=== PATIENT | female | born 1975 | race Caucasian/White ===

== ENCOUNTER → 2016-09-08 | Outpatient (CLI) | payer OTHER ==
[~2016-09-08] MED LIST: PHEN95TA14 PO; PRENTAB26 PO
[2016-09-08 17:23] LABS: GTGD 50 Grams
[2016-09-14 14:50] LABS: AFP MULTIPLE OF MEDIAN 1.13; AFPTS GESTATIONAL AGE 18.4 WEEKS; AFPTS INSULIN DEP DIABETIC? NO; AFPTS MATERNAL WT 131 LBS; ALPHA-FETOPROTEIN RACE CAUCASIAN=W; HISTORY OF NTD NO; REPEAT SAMPLE? NO
== END | disposition home or self-care (01) ==
LOC: C.LAB1850 14:13
PROVIDERS: ATTEND Obstetrics & Gynecology
DX: O09.529 Supervision of elderly multigravida, unspecified trimester (principal)

== ENCOUNTER → 2016-11-24 | Outpatient (CLI) | payer OTHER ==
[2016-11-24 17:21] LABS: HEMATOCRIT 36.1 % (37-47)
[2016-11-24 17:42] LABS: GTGD 50 Grams
[2016-11-24 17:43] LABS: URINE APPEARANCE CLEAR (CLEAR); URINE BILIRUBIN NEG (NEG); URINE COLOR YELLOW; URINE EPITHELIAL CELL AUTO >30 /lpf (0-5); URINE NITRITE NEG (NEG); URINE SPECIFIC GRAVITY 1.011 (1.000-1.030); UROBILINOGEN NEG (NEG)
[2016-11-24 17:44] LABS: MANUAL MICROSCOPIC REQUIRED? NO; REVIEW REQ? NO
== END | disposition home or self-care (01) ==
LOC: C.LAB1850 16:05
PROVIDERS: ATTEND Obstetrics & Gynecology
DX: O09.523 Supervision of elderly multigravida, third trimester (principal)

== ENCOUNTER 2017-01-29 09:14 | Inpatient (IN) | payer OTHER ==
[~2017-01-29] VITALS: Ht 167.6 cm; Wt 71.0 kg
[~2017-01-29 09:14] MED LIST changes: -PRENTAB26 PO
[2017-01-29] MEDS ORDERED: LACTATED RINGER'S 1000ML 1,000 ML IV PRN (09:15)
[2017-01-29] MEDS ORDERED: LACTATED RINGER'S 1000ML 1,000 ML IV SCH (09:15)
[2017-01-29] MEDS ORDERED: FENTANYL CITRATE INJ 50 MCG/1 ML 2 ML VIAL ONE (09:37)
[2017-01-29] MEDS ORDERED: FENTANYL 2MCG/ML ROPIV 1.25MG/ML 100ML BAG EPI ONE (09:37)
[2017-01-29] MEDS ORDERED: EpHEDrine SULFATE INJ 50 MG/ML AMP ONE (09:37)
[2017-01-29] MEDS ORDERED: BUPIVACAINE 0.25% 30 ML VIAL ONE (09:37)
[2017-01-29 09:40] LABS: MEAN CELL VOLUME 98.7 fL (80-100); MEAN CORPUSCULAR HEMOGLOBIN 33.6 pg (25-34); MEAN CORPUSCULAR HGB CONC 34.1 g/dl (32-36); MEAN PLATELET VOLUME 9.5 fL (7.4-10.4); PLATELET COUNT 242 K/uL (130-400); RED BLOOD COUNT 3.75 M/uL (4.2-5.4); WHITE BLOOD COUNT 19.44 K/uL (4.8-10.8)
[2017-01-29] MEDS ORDERED: NALOXONE HCL INJ 1 MG in SODIUM CHLORIDE 0.9% 1000ML 1,000 ML IV PRN (09:48)
[2017-01-29] MEDS ORDERED: LACTATED RINGER'S 1000ML 500 ML IV PRN (09:48)
[2017-01-29] MEDS ORDERED: NALBUPHINE HCL INJ 10 MG/ML AMP IV PRN (10:00)
[2017-01-29] MEDS ORDERED: NALOXONE HCL INJ 0.4 MG/1 ML VIAL/CARP IV PRN (10:00)
[2017-01-29] MEDS ORDERED: ONDANSETRON INJ 2 MG/ML 2 ML VIAL IV PRN (10:00)
[2017-01-29] MEDS ORDERED: DiphenhydrAMINE HCL 50 MG/ML VIAL IV PRN (10:00)
[2017-01-29] MEDS ORDERED: EpHEDrine SULFATE INJ 50 MG/ML AMP IV PRN (10:00)
[2017-01-29] MEDS ORDERED: FENTANYL 2MCG/ML ROPIV 1.25MG/ML 100ML BAG EPI PRN (10:00)
[2017-01-29 11:14] VITALS: Ht 167.6 cm; Wt 71.0 kg
[2017-01-29] MEDS ORDERED: PRENTAB26 PO (11:41)
[2017-01-29] MEDS ORDERED: OXYTOCIN 30 UNITS/500ML NSS IV ONE (12:02)
[2017-01-29] MEDS ORDERED: SUPERCREAM 0.870 % 15GM JAR EXT PRN (12:30)
[2017-01-29] MEDS ORDERED: LANOLIN OINT EXT PRN ×2 (12:30)
[2017-01-29] MEDS ORDERED: OXYTOCIN 30 UNITS/500ML NSS IV PRN (12:30)
[2017-01-29] MEDS ORDERED: OXYTOCIN INJ 20 UNITS in LACTATED RINGER'S 1000ML 1,000 ML IV SCH (12:30)
[2017-01-29] MEDS ORDERED: HYDROCORTISONE ACETATE 25 MG SUPP PR PRN (12:30)
[2017-01-29] MEDS ORDERED: BENZOCAINE 20% AER SPR 82.5 GM CAN EXT PRN (12:30)
[2017-01-29] MEDS ORDERED: DIPHTHERIA/TETANUS/PERTUSSIS 0.5 ML SYR/VIAL IM. ONE (12:30)
--- NOTE | 2017-01-29 13:26 | DELIVERY SUMMARY ---
DATE OF OPERATION: 01/29/2017 DELIVERY SUMMARY: The patient dilated to complete and pushed to deliver a viable male , Apgars 8 and 9 via over intact perineum. Nose and mouth bulb suctioned at the perineum. Shoulders and body delivered with ease. Infant vigorous and crying at . Peds in attendance. Cord clamped after approximately 38 seconds of life and infant to maternal abdomen. Cord then doubly clamped and cut. Placenta was delivered spontaneously intact, 3-vessel cord. Hemostasis achieved with dilute Pitocin and uterine massage. Cervix and sulci intact. Estimated blood loss 300 mL. Mother and baby stable in recovery. Bladder drained just prior to delivery for 600 mL. I attest to the content of the Intraoperative Record and any orders documented therein. Any exceptions are noted below. MTDD
[2017-01-29 15:30] VITALS: BP 117/72; PULSE 88; TEMP 36.9
[2017-01-29] MEDS: IBUPROFEN 600 MG TAB PO PRN ×2 (17:19→23:41)
[2017-01-29] MEDS: ACETAMINOPHEN 325 MG TAB PO PRN (19:20)
[2017-01-29] MEDS: DOCUSATE SODIUM 100 MG CAP PO SCH (19:21)
[2017-01-29 19:25] VITALS: BP 121/77; PULSE 70; TEMP 37.2; O2SAT 96
[2017-01-29] MEDS ORDERED: CALCIUM CARBONATE 500 MG CHEWABLE PO PRN (21:15)
[2017-01-29 23:45] VITALS: BP 101/65; PULSE 70; TEMP 37; O2SAT 96
[2017-01-30] MEDS: ACETAMINOPHEN 325 MG TAB PO PRN (02:04)
[2017-01-30 03:45] VITALS: BP 118/74; PULSE 74; TEMP 36.8; O2SAT 96
[2017-01-30] MEDS: IBUPROFEN 600 MG TAB PO PRN ×5 (04:10→21:34)
[2017-01-30 07:37] VITALS: BP 91/61; PULSE 84; TEMP 36.7; O2SAT 97
[2017-01-30 07:41] VITALS: BP 111/68; PULSE 75; TEMP 37.3; O2SAT 97
--- NOTE | 2017-01-30 07:58 | Progress Note ---
Subjective Jan 30, 2017. Subjective conversation w/ patient, physical exam Ambulation: ambulating normally Voiding: no voiding problems Diet Tolerance: Regular Diet Lochia: Small Feeding Type: Bottle Feeding Pain: no pain issues Comment: pt is sure ABO is O pos and I checked [employer] and that is the case. documented wrong in ob record. Objective Vital Signs Date Time Temp Pulse Resp B/P (MAP) Pulse Ox O2 Delivery O2 Flow Rate FiO2 01/30/17 03:45 36.8 74 16 118/74 (89) 96 Room Air 01/29/17 23:45 37.0 70 18 101/65 (77) 96 Room Air 01/29/17 23:45 96 Room Air 01/29/17 19:25 37.2 70 18 121/77 (92) 96 Room Air 01/29/17 15:30 Room Air 01/29/17 15:30 36.9 88 20 117/72 (87) Room Air Physical Exam General Appearance: WELL-APPEARING, WD/WN, NO APPARENT DISTRESS Respiratory/Chest: lungs clear Cardiovascular: regular rate, rhythm Abdomen: non tender, soft Fundus: Firm, Relation to Umbilicus (2 down) Extremities: non-tender Laboratory Results Last 24 Hours Test 01/29/17 09:31 White Blood Count 19.44 K/uL Red Blood Count 3.75 M/uL Hemoglobin 12.6 g/dL Hematocrit 37.0 % Mean Corpuscular Volume 98.7 fL Mean Corpuscular Hemoglobin 33.6 pg Mean Corpuscular Hemoglobin Concent 34.1 g/dl RDW Standard Deviation 50.7 fL RDW Coefficient of Variation 14.1 % Platelet Count 242 K/uL Mean Platelet Volume 9.5 fL Assessment and Plan Problem List Medical Problems: (1) Anxiety and depression Status: Chronic (2) Foot pain Status: Acute (3) Right foot strain Status: Acute (4) Tobacco Use Disorder Status: Chronic (5) Urinary tract infection Status: Acute Post- Day#: 1 Continue Routine Care: stable. routine care. rh pos. baby doing well. she is considering pumping-- explained that can't wait.
[2017-01-30] MEDS: DOCUSATE SODIUM 100 MG CAP PO SCH ×2 (08:35→20:00)
[2017-01-30 11:45] VITALS: BP 105/60; PULSE 80; TEMP 37.3; O2SAT 95
[2017-01-30 15:40] VITALS: BP 133/82; PULSE 73; TEMP 37
[2017-01-30 23:45] VITALS: BP 107/69; PULSE 73; TEMP 37.2; O2SAT 95
--- NOTE | 2017-01-31 07:42 | Progress Note ---
Subjective Jan 31, 2017. Subjective conversation w/ patient, physical exam Ambulation: ambulating normally Voiding: no voiding problems Feeding Type: Bottle Feeding Objective Vital Signs Date Time Temp Pulse Resp B/P (MAP) Pulse Ox O2 Delivery O2 Flow Rate FiO2 01/30/17 23:45 95 Room Air 01/30/17 23:45 37.2 73 16 107/69 (82) 95 Room Air 01/30/17 16:10 Room Air 01/30/17 15:40 37.0 73 18 133/82 (99) Room Air 01/30/17 11:45 37.3 80 20 105/60 (75) 95 Room Air 01/30/17 08:00 Room Air 01/30/17 07:41 37.3 75 16 111/68 (82) 97 Room Air Physical Exam General Appearance: WELL-APPEARING, NO APPARENT DISTRESS Fundus: Firm, Non-Tender Extremities: no calf tenderness Assessment and Plan Problem List Medical Problems: (1) Anxiety and depression Status: Chronic (2) Foot pain Status: Acute (3) Right foot strain Status: Acute (4) Tobacco Use Disorder Status: Chronic (5) Urinary tract infection Status: Acute Post- Day#: 2 Continue Routine Care: - patient doing well - baby's cardiac status is stable - baby under the bili lights, unknown if the baby will be discharged - d/c instructions given to Mom - f/u in 6 weeks
--- NOTE | 2017-01-31 07:43 | Discharge Instructions ---
Discharge Instructions Date of Service Jan 31, 2017. Admission Reason for Admission: Check Labor Discharge Discharge Diagnosis / Problem: same Discharge Goals Goal(s): Routine recovery after delivery Medications Continue Dispensed Medications: supercream, dermaplast Activity Recommendations Activity Limitations: as noted below . Instructions / Follow-Up Instructions / Follow-Up ACTIVITY RECOMMENDATIONS: * Gradual return to full activity over the next 2-3 weeks. * No lifting - nothing heavier than baby over the next 2-3 weeks. * Do not engage in vigorous exercise, sexual activity or sports until cleared by your physician. * Do not drive or operate any motorized equipment until cleared by your physician. * You may shower/bathe daily. MEDICATIONS: For discomfort or pain, you may use Acetaminophen (Tylenol), Ibuprofen (Advil), or Naproxen (Aleve) following the package directions. For constipation you may use Colace following the package directions. BREAST CARE: If you are not breast feeding: * Wear a supportive bra 24 hours a day for one to two weeks. * Avoid stimulating your breasts and nipples as much as possible during the first few weeks after delivery. * When taking a shower, have the warm water hit your back, not breasts. * When your breasts feel full, apply ice packs. Usually three to four times a day helps ease the discomfort. * Take a mild pain medication (Tylenol / Motrin) when you are uncomfortable. If breast feeding: * Use breast milk to lubricate nipples. Lansinoh cream may be used for sore nipples. You do not need to remove cream prior to breast feeding. If using a different brand of cream, check the label for directions regarding removal of cream prior to nursing. * Wear a supportive bra. * If having problems with breasts or breast feeding, call a trousseau consultant or your health care provider. EPISIOTOMY CARE: After delivery, if you have an episiotomy (stitches), the following steps will ease discomfort and aid healing. * For the first 24 hours after delivery, place ice packs next to your episiotomy to help reduce swelling. * After the first 24 hour-period, sitz baths, either portable or in the tub, are suggested. A shower with a shower arm sprayed over the episiotomy may be comforting. * Jodi care should be done after each voiding and bowel movement. Squirt warm water from a plastic bottle over the perineum (region of the body between the anus and urinary opening) and pat dry. * Use Dermoplast to ease discomfort. Shake container. [place] directly over the episiotomy. Place a Tucks on a clean sanitary pad next to your episiotomy. SPECIAL CARE INSTRUCTIONS: When you are discharged from the hospital, it is important for you to follow the instructions listed below: * During the first week at home, you should be able to care for yourself and your baby. In addition, the usual light household activities are encouraged. * Limit your activities to the way you feel. Do not try to clean the house or move furniture. Be sensible. * If you actively engage in sports and have done so up until the time of your delivery, you may resume these activities as soon as you feel able. This may take up to one month or even longer. Use good judgment. * Continue to take your vitamins for at least six weeks after the of your baby. * Your diet need not be limited unless you were on a special diet before your delivery. Breast-feeding mothers need around 2500 calories per day and at least 64-80 ounces of fluid per day (8 to 10 glasses). * You should eat foods from the four major food groups. Crash diets or fad diets are to be avoided. Eating lean meats, fresh fruits and vegetables, low-fat dairy products, high fiber foods and a regular exercise program, will help you get back to your pre- weight without putting your health at risk. * Constipation is sometimes a problem after delivery. Take a mild laxative as needed. If breast feeding, Milk of Magnesia is acceptable to use. You may use a suppository or Fleets enema if no episiotomy. * A daily shower or tub bath is suggested. Be sure to thoroughly and gently dry the perineum. * A bloody vaginal discharge will usually continue until around four weeks post . A small amount of bleeding may continue for as long as six weeks. Vaginal discharge changes from the bright red bleeding after delivery to pink then brownish and finally yellowish-pink before becoming white and disappearing. * Bleeding may increase with activity. Your first period may come in 4-8 weeks. If you are breast feeding, your period may be delayed even longer. * Mar-Mac (sex) can begin whenever both you and your partner feel comfortable and do not have any form of genital infection. It is recommended that you wait at least six weeks for internal and external healing to occur. If you have questions, please talk to your health care practitioner. A condom should be used to prevent infection and . * Foreplay, gentle intercourse and lubrication is very important the first several times to prevent pain. A water-based lubricant such as K-Y jelly or Astroglide may be used. * If you have RH negative blood and your baby is RH positive, you will receive RHOGAM by injection prior to discharge. The nurse will give you a card to keep with you that has the date and place that you received RHOGAM after delivery. * During your care, you had a Rubella screen done to check for the presence of rubella antibodies in your blood. If your test was negative, you will receive a Rubella vaccine prior to discharge. This vaccine may cause a fever, soreness at the injection site and flu-like symptoms. If these symptoms persist, notify your health care practitioner. is not advised for one month after a Rubella vaccine. * Verbalizes understanding of car seat law as reviewed with patient nursing. * Car Seat hand-out given and reviewed with patient by nursing. * Shaken baby information reviewed with patient by nursing. Call you doctor if: * Heavy bleeding (saturating several pads an hour) or passing clots the size of your fist. * A fever >101 degrees F (38.3 degrees C) on two occasions four hours apart and /or chills. * Unusual pain in the pelvic or vaginal areas. * "Baby Blues" lasting longer than two weeks. If you have any questions or concerns, call your health care practitioner at . FOLLOW UP VISIT: * Please call the office at to schedule a 6 week examination. It is important you keep this appointment. It is important for you to make arrangements for either yearly or twice yearly check-ups thereafter. Current Hospital Diet Patient's current hospital diet: Regular OB Diet Discharge Diet Recommended Diet: Regular OB Diet Pending Studies Studies pending at discharge: no Medical Emergencies . Who to Call and When: Medical Emergencies: If at any time you feel your situation is an emergency, please call 911 immediately. . Non-Emergent Contact Non-Emergency issues call your: [employer] Call Non-Emergent contact if: you have a fever, temperature is above 100.5 . . "Provider Documentation" section prepared by Talon Hamilton. . VTE Core Measure Inpt VTE Proph given/why not?: Treatment not indicated
[2017-01-31] MEDS: DOCUSATE SODIUM 100 MG CAP PO SCH (07:58)
[2017-01-31 08:00] VITALS: BP 111/77; PULSE 71; TEMP 37.1; O2SAT 97
[2017-01-31] MEDS: IBUPROFEN 600 MG TAB PO PRN ×2 (08:04→18:22)
[2017-01-31 15:06] VITALS: BP 116/76; PULSE 73; TEMP 37.3; O2SAT 97
[2017-01-31 18:12] VITALS: BP_DIAS 76; PULSE 73; TEMP 37.3
== END 2017-01-31 19:56 | disposition home or self-care (01) | DRG 775 ==
LOC: C.OPB 09:14 → C.LD 09:14 → C.OPB 09:16 → C.OBG 15:22
PROVIDERS: ADMIT Obstetrics & Gynecology; ATTEND Obstetrics & Gynecology
PROC: 10E0XZZ Delivery of Products of Conception, External Approach (ICD-10-PCS; principal; 2017-01-29)
DX: O35.1XX0 Maternal care for (suspected) chromosomal abnormality in fetus, not applicable or unspecified (principal); Z37.0 Single live birth; O26.893 Other specified pregnancy related conditions, third trimester; O35.8XX0 Maternal care for other (suspected) fetal abnormality and damage, not applicable or unspecified; O36.5930 Maternal care for other known or suspected poor fetal growth, third trimester, not applicable or unspecified; Z87.891 Personal history of nicotine dependence; Z3A.37 37 weeks gestation of pregnancy